=== PATIENT | male | born 1975 | race Caucasian/White ===

== ENCOUNTER 2020-04-17 15:09 | Outpatient (CLI) | payer BC ==
--- NOTE | 2020-04-17 15:43 | RAD ---
PA AND LATERAL CHEST: 04/17/20 HISTORY: Cough. Heart size and mediastinum are within normal limits. The lungs appear clear of any infiltrates. No betzy [place] findings. IMPRESSION: No active intrathoracic disease. POS: [facility]
== END 2020-04-17 15:10 | disposition home or self-care (01) ==
LOC: SCSRAD 15:09
PROVIDERS: ATTEND Student in an Organized Health Care Education/Training Program
DX: R05 Cough (principal)
CPT/HCPCS: 71046